=== PATIENT | male | born 1960 | race Two or more races ===

== ENCOUNTER 2022-07-04 14:00 | Emergency (ER) | payer MEDICAID ==
[~2022-07-04] VITALS: Ht 165.1 cm; Wt 75.0 kg
[2022-07-04 14:20] VITALS: BP 162/90
[2022-07-04] MEDS ORDERED: METF-81 PO (14:25)
[2022-07-04] MEDS ORDERED: htn med PO (14:25)
[2022-07-04] MEDS ORDERED: HYDROCODONE/ACETAMINOPHEN 5-325 MG TABLET PO ONE ×2 (18:30)
== END 2022-07-04 20:00 | disposition left against medical advice (07) ==
LOC: EMS 14:06
DX: M25.511 Pain in right shoulder (principal); E11.9 Type 2 diabetes mellitus without complications; F32.9 Major depressive disorder, single episode, unspecified; F10.20 Alcohol dependence, uncomplicated; I10 Essential (primary) hypertension; V43.52XA Car driver injured in collision with other type car in traffic accident, initial encounter; Y93.89 Activity, other specified; Y92.89 Other specified places as the place of occurrence of the external cause; Y99.8 Other external cause status
CPT/HCPCS: 99283